=== PATIENT | male | born 1955 | race Caucasian/White ===

== ENCOUNTER 2020-07-15 16:00 | Outpatient (RCR) | payer BC | END 2020-07-21 | disposition still patient (30) | LOC: WSC | DX: M17.0 Bilateral primary osteoarthritis of knee (principal); Z96.652 Presence of left artificial knee joint ==

== ENCOUNTER 2020-10-26 14:30 | Outpatient (RCR) | payer BC | END 2020-10-27 | disposition home or self-care (01) | LOC: WSPT | DX: M17.0 Bilateral primary osteoarthritis of knee (principal) ==

== ENCOUNTER 2020-11-02 13:18 | Outpatient (RCR) | payer BC | END 2020-11-07 | disposition home or self-care (01) | LOC: WSPT | DX: M17.0 Bilateral primary osteoarthritis of knee (principal) ==

== ENCOUNTER 2021-01-18 17:00 | Outpatient (RCR) | payer BC | END 2021-02-06 | disposition home or self-care (01) | LOC: WSPT | DX: M17.0 Bilateral primary osteoarthritis of knee (principal) ==

== ENCOUNTER 2021-03-15 16:15 | Outpatient (RCR) | payer BC | END 2021-03-30 10:07 | disposition still patient (30) | LOC: WSC 16:15 | DX: M17.0 Bilateral primary osteoarthritis of knee (principal) ==

== ENCOUNTER 2021-12-22 06:24 | Emergency (ER) | payer BC ==
[~2021-12-22] VITALS: Ht 175.3 cm; Wt 152.3 kg
[2021-12-22 06:25] VITALS: TEMP 97.6
[2021-12-22] MEDS ORDERED: LISINOPRIL (06:46)
[2021-12-22] MEDS ORDERED: SINGULAIR 110 MG/TAB PO (06:47)
[2021-12-22] MEDS ORDERED: CELEBREX (06:47)
[2021-12-22] MEDS ORDERED: HEART MEDICATION (06:48)
[2021-12-22] MEDS ORDERED: DIABETIC (06:49)
[2021-12-22 07:03] LABS: BASO # 0.1 K/mm3 (0.0-0.2); BASO % 0.6 % (0.0-2.0); EOS # 0.2 K/mm3 (0.0-0.7); EOS % 2.4 % (0.0-4.0); GRAN # 5.3 K/mm3 (1.4-6.5); GRAN % 68.4 % (42.2-75.2); HEMOGLOBIN 12.9 g/dl (13.5-18.0); LYMPH # 1.5 K/mm3 (1.2-3.4); LYMPH % 19.7 % (20.0-51.0); MEAN CELL VOLUME 85 fl (80.0-100.0); MEAN CORPUSCULAR HEMOGLOBIN 30 pg (27-31); MEAN CORPUSCULAR HGB CONC 35 g/dl (33.0-37.0); MEAN PLATELET VOLUME 9.5 fl (7.4-10.4); MONO # 0.7 K/mm3 (0.1-0.6); MONO % 8.6 % (1.7-9.3); PLATELET COUNT 264 K/mm3 (130-400); RED BLOOD COUNT 4.32 M/mm3 (4.20-5.60); REDCELL DISTRIBUTION WIDTH-CV 13.2 % (11.5-14.5)
[2021-12-22 07:06] LABS: HEMATOCRIT 36.9 % (42.0-52.0)
[2021-12-22 07:27] VITALS: BP 105/60; PULSE 69
== END 2021-12-22 07:45 | disposition home or self-care (01) ==
LOC: COL.ER 06:24
PROVIDERS: Emergency Medicine
DX: I83.891 Varicose veins of right lower extremity with other complications (principal); D64.9 Anemia, unspecified; I10 Essential (primary) hypertension; Z79.899 Other long term (current) drug therapy

== ENCOUNTER 2022-01-25 14:43 | Outpatient (RCR) | payer BC, MEDICARE ==
[~2022-01-25 14:43] MED LIST: CELEBREX; DIABETIC; HEART MEDICATION; LISINOPRIL; SINGULAIR 110 MG/TAB PO
== END 2022-02-01 | disposition home or self-care (01) ==
LOC: WSPT
DX: I83.891 Varicose veins of right lower extremity with other complications (principal); F33.42 Major depressive disorder, recurrent, in full remission; E11.69 Type 2 diabetes mellitus with other specified complication; E66.01 Morbid (severe) obesity due to excess calories; Z68.43 Body mass index [BMI] 50.0-59.9, adult

== ENCOUNTER 2022-02-27 15:45 | Outpatient (RCR) | payer BC, MEDICARE | END 2022-03-03 | disposition home or self-care (01) | LOC: WSPT | DX: E66.01 Morbid (severe) obesity due to excess calories (principal) ==

== ENCOUNTER 2022-03-30 08:15 | Outpatient (RCR) | payer BC | END 2022-04-03 | disposition home or self-care (01) | LOC: WSC | DX: E66.01 Morbid (severe) obesity due to excess calories (principal); M17.0 Bilateral primary osteoarthritis of knee ==

== ENCOUNTER → 2022-05-03 | Outpatient (RCR) | payer BC | END | disposition home or self-care (01) | LOC: WSPT → WSC 04-04 07:43 → WSPT 04-19 08:15 | DX: E66.01 Morbid (severe) obesity due to excess calories (principal); M17.0 Bilateral primary osteoarthritis of knee ==

== ENCOUNTER 2022-05-31 11:15 | Outpatient (RCR) | payer BC | END 2022-06-03 | disposition home or self-care (01) | LOC: WSPT | DX: E66.01 Morbid (severe) obesity due to excess calories (principal); Z68.43 Body mass index [BMI] 50.0-59.9, adult ==

== ENCOUNTER 2022-07-03 08:15 | Outpatient (RCR) | payer BC | END 2022-07-04 | disposition home or self-care (01) | LOC: WSPT | DX: E66.01 Morbid (severe) obesity due to excess calories (principal); Z68.43 Body mass index [BMI] 50.0-59.9, adult ==

== ENCOUNTER 2022-08-28 07:47 | Outpatient (RCR) | payer BC | END 2022-09-03 | disposition home or self-care (01) | LOC: WSC | DX: M17.0 Bilateral primary osteoarthritis of knee (principal); E66.01 Morbid (severe) obesity due to excess calories; E11.69 Type 2 diabetes mellitus with other specified complication; I83.891 Varicose veins of right lower extremity with other complications; Z68.43 Body mass index [BMI] 50.0-59.9, adult ==